=== PATIENT | male | born 1980 | race Caucasian/White ===

== ENCOUNTER → 2017-11-09 | Outpatient (CLI) | payer OTHER ==
[2017-11-09] MEDS: GADOBUTROL 10 MMOL/10 ML VIAL IV (09:34)
== END | disposition home or self-care (01) ==
LOC: KCIC MRI 08:23
DX: H93.12 Tinnitus, left ear (principal)
CPT/HCPCS: 70553; A9585

== ENCOUNTER 2018-05-18 17:03 | Inpatient (IN) | payer OTHER ==
[2018-05-18] VITALS (7 sets, daily range): BP systolic 102–139; BP diastolic 61–98
[~2018-05-18] VITALS: Ht 180.3 cm; Wt 94.4 kg
[~2018-05-18 17:03] MED LIST: TRAZ-85 PO
[2018-05-18] MEDS ORDERED: 0.9 % SODIUM CHLORIDE 10 ML DISP.SYRIN. IV PRN (19:30)
[2018-05-18] MEDS ORDERED: HALOPERIDOL LACTATE 5 MG/ML VIAL. IVP PRN (19:30)
[2018-05-18] MEDS ORDERED: fentaNYL PF VIAL 100 MCG/2 ML VIAL IV PRN ×2 (19:30)
[2018-05-18] MEDS ORDERED: ONDANSETRON PF 4 MG/2 ML VIAL. IV PRN (19:30)
[2018-05-18 20:33] LABS: BASE EXCESS ABG -4 mmol/L (-3-3); HCO3 ABG 21 mmol/L (21-28); PCO2 ABG 37 mmHg (35-46); PO2 ABG 136 mmHg (85-108); SAT O2 ABG 98 % (92-99)
[2018-05-18 20:34] LABS: FIO2 ABG 40
[2018-05-18] MEDS: IV NORMAL SALINE 1000ML BAG 1,000 ML IV SCH (20:34)
[2018-05-18] MEDS ORDERED: CHLORHEXIDINE 0.12% 15 ML MOUTHWASH. MM SCH (21:00)
--- NOTE | 2018-05-18 21:43 | RAD ---
Examination: Single frontal view of the abdomen HISTORY: History of NG tube placement COMPARISON: None available. Findings/ impression: The feeding tube is identified just below the level of the hemidiaphragm projecting distal to the gastroesophageal junction. The stomach is mildly distended with air. Recommend chest radiograph to follow the course of the NG tube. The bowel gas pattern appears unremarkable. Electronically signed by: Kilo De La Torre MD (05/18/2018 9:40 PM) [facility]
--- NOTE | 2018-05-18 21:43 | RAD ---
Examination: Single frontal view of the abdomen HISTORY: History of NG tube placement COMPARISON: None available. Findings/ impression: The feeding tube is identified just below the level of the hemidiaphragm projecting distal to the gastroesophageal junction. The stomach is mildly distended with air. Recommend chest radiograph to follow the course of the NG tube. Electronically signed by: Kilo De La Torre MD (05/18/2018 9:39 PM) [facility]
[2018-05-18] MEDS ORDERED: HYDR25TA PO (21:55)
[2018-05-18] MEDS ORDERED: GABA300C18 PO (22:32)
[2018-05-18] MEDS ORDERED: VENL75TA PO (22:32)
[2018-05-18] MEDS ORDERED: DISU250T PO (22:32)
[2018-05-18] MEDS ORDERED: NAPR-514 PO (22:32)
[2018-05-18] MEDS ORDERED: PRAZ2CAP2 PO (22:32)
[2018-05-19] VITALS (16 sets, daily range): BP systolic 88–156; BP diastolic 43–110
[2018-05-19] MEDS: PROPOFOL 100 ML IV PRN ×2 (03:39→09:24)
[2018-05-19 05:29] LABS: BASO % 0 % (0-3); EOS # 0.2 x10^3/uL (0.0-0.7); EOS % 2 % (0-3); HEMATOCRIT 42.6 % (39.0-53.0); HEMOGLOBIN 14.4 g/dL (13.0-17.5); LYMPH # 2.9 x10^3/uL (1.0-4.8); LYMPH % 38 % (24-48); MEAN CORPUSCULAR HEMOGLOBIN 31 pg (25-35); MEAN CORPUSCULAR HGB CONC 34 g/dL (31-37); MEAN CORPUSCULAR VOLUME 92 fL (79-100); MONO # 0.2 x10^3/uL (0.0-1.1); MONO % 2 % (0-9); NEUT # 4.5 x10^3uL (1.8-7.7); NEUT % 58 % (31-73); PLATELET COUNT 272 x10^3/uL (140-400); RED BLOOD COUNT 4.61 x10^6/uL (4.30-5.70); RED CELL DISTRIBUTION WIDTH 14.7 % (11.5-14.5); WHITE BLOOD COUNT 7.7 x10^3/uL (4.0-11.0)
[2018-05-19] MEDS: IV NORMAL SALINE 1000ML BAG 1,000 ML IV SCH (05:43)
[2018-05-19 05:53] LABS: ALBUMIN 3.5 g/dL (3.4-5.0); ALBUMIN/GLOBULIN RATIO 1.1 (1.0-1.7); CALCIUM 7.4 mg/dL (8.5-10.1); CREATININE 0.8 mg/dL (0.7-1.3); GFR 108.8; POTASSIUM 3.6 mmol/L (3.5-5.1); TOTAL BILIRUBIN 0.2 mg/dL (0.2-1.0); TOTAL PROTEIN 6.6 g/dL (6.4-8.2)
--- NOTE | 2018-05-19 07:53 | RAD ---
AP chest x-ray HISTORY: Respiratory distress, mechanical ventilation, respiratory failure. FINDINGS: Endotracheal tube tip 5 cm above the hi. Nasogastric tube extends to the abdomen. Heart size upper limits normal. Mediastinum unremarkable. Thin linear density left lung base laterally likely discoid atelectasis. No pneumothorax, pulmonary opacities or pleural effusions. Mild upper thoracic scoliosis. IMPRESSION: Lines and tubes as described above. No pneumothorax. Mild discoid atelectasis at the left lung base. AP abdomen x-ray HISTORY: Orogastric tube placement. FINDINGS: Since the prior study from May 18, 2018 there has been repositioning of the orogastric tube to the midline abdomen near the region of the lower stomach. The stomach gas has been decompressed since the prior study. The right abdomen and flank laterally are outside the [id number]. Mild volume of stool and gas within the left-sided colon. No dilated small bowel loops. Bones unremarkable. IMPRESSION: Orogastric intubation. Electronically signed by: Santiago Thompson MD (05/19/2018 7:50 AM) [facility]
--- NOTE | 2018-05-19 07:53 | RAD ---
AP chest x-ray HISTORY: Respiratory distress, mechanical ventilation, respiratory failure. FINDINGS: Endotracheal tube tip 5 cm above the hi. Nasogastric tube extends to the abdomen. Heart size upper limits normal. Mediastinum unremarkable. Thin linear density left lung base laterally likely discoid atelectasis. No pneumothorax, pulmonary opacities or pleural effusions. Mild upper thoracic scoliosis. IMPRESSION: Lines and tubes as described above. No pneumothorax. Mild discoid atelectasis at the left lung base. AP abdomen x-ray HISTORY: Orogastric tube placement. FINDINGS: Since the prior study from May 18, 2018 there has been repositioning of the orogastric tube to the midline abdomen near the region of the lower stomach. The stomach gas has been decompressed since the prior study. The right abdomen and flank laterally are outside the [id number]. Mild volume of stool and gas within the left-sided colon. No dilated small bowel loops. Bones unremarkable. IMPRESSION: Orogastric intubation. Electronically signed by: Santiago Thompson MD (05/19/2018 7:50 AM) [facility]
[2018-05-19 07:55] LABS: BASE EXCESS ABG -4 mmol/L (-3-3); HCO3 ABG 21 mmol/L (21-28); PCO2 ABG 40 mmHg (35-46); PO2 ABG 145 mmHg (85-108); SAT O2 ABG 98 % (92-99)
[2018-05-19 07:58] LABS: FIO2 ABG 40
[2018-05-19] MEDS ORDERED: POTASSIUM CL 20MEQ IN D5W 1,000 ML IV SCH (08:00)
--- NOTE | 2018-05-19 08:18 | HP ---
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 He was sent from there to [facility] for evaluation for medical clearance before he gets to [facility]. The emergency medical service personnel reported that the patient had a Anton coma scale of 3 with spontaneous respirations. He apparently was slightly tachycardic without hypertension, hypoxia, and he was unresponsive to painful stimuli. He was given Narcan without improvement. His blood alcohol level was extremely high and more than 500, and therefore, he was intubated to protect his airway and was transferred to [facility] for ventilator management. PAST MEDICAL HISTORY: Unobtainable. PAST SURGICAL HISTORY: Unremarkable. FAMILY HISTORY: Unremarkable. SOCIAL HISTORY: He is . Apparently, he has a problem with alcohol abuse and was seen at [facility] for him to go to [facility] for rehabilitation. PHYSICAL EXAMINATION: GENERAL: On arrival to the Emergency Room, the patient was well developed, well nourished, unresponsive. VITAL SIGNS: His heart rate was 82, blood pressure was 110/60, respiratory rate was 18 and oxygen saturation was 96% on room air. HEAD, EYES, EARS, NOSE AND THROAT: Showed normocephalic, atraumatic. NECK: Supple. HEART: Showed normal first and second heart sounds. No gallop, rub or murmur. CHEST: Clear to auscultation. No crepitation or rhonchi. ABDOMEN: Slightly distended, soft, nontender. No guarding or rigidity. No organomegaly. All hernial orifice intact. Bowel sounds normal. EXTREMITIES: Showed no clubbing, cyanosis or edema. NEUROLOGIC: He was unresponsive with a Anton coma scale of 3. His EKG showed that he was in sinus tachycardia with a heart rate of 105, otherwise a normal EKG. He has had lab work withdrawn, and the patient underwent intubation and endotracheal tube was secured in position, and the placement was confirmed by change of color of carbon dioxide detector, direct visualization of vocal cords, bilateral chest rise and chest x-ray was done to verify correct placement. LABORATORY DATA: While at the Emergency Room showed that his white cell count was 9900, hemoglobin 14, hematocrit 41, MCV 92 and platelet count 299,000, with normal manual differential. His chemistry showed a serum sodium 143, potassium 3.7, chloride 103, bicarbonate 25, anion gap of 15. His glucose was 107, BUN is 11 and creatinine 0.9. Total bilirubin, AST, ALT, alkaline phosphatase were normal. His total protein was 7.1, albumin 3.9, calcium was 8.4. His estimated GFR was 95 mL per minute. CK was 198, magnesium 2.1. Lactic acid was 3.6. Serum lipase was 128. Ammonia was 21. His urine toxicology screen was negative except for a blood alcohol level of 530 mg/dL, and therefore, the patient was transferred to [facility] for continued mechanical ventilation, continue the propofol for sedation and normal saline together with alcohol withdrawal protocol. DON STALEY MD DR: SERAFIN/karla JOB#: [id number] / [id number]
--- NOTE | 2018-05-19 09:15 | PN ---
DATE: 05/19/2018 SUBJECTIVE: The patient is resting, slightly propped up in bed, no apparent distress, continued to be intubated, mechanically ventilated, sedated with propofol. The nursing staff stated that he had an uneventful night. PHYSICAL EXAMINATION: GENERAL: When I examined him, he looked well and was clearly in no apparent respiratory distress. No pallor, jaundice, cyanosis, or thyromegaly. No jugular venous distension. No limb edema. VITAL SIGNS: His heart rate was 80, blood pressure was 102/61, temperature was 98, respiratory rate was 18 and oxygen saturation was 97% on FiO2 of 50%. HEAD, EYES, EARS, NOSE AND THROAT: Showed normocephalic, atraumatic. His orotracheal tube in place. NECK: Supple. HEART: Showed normal first and second heart sounds with no gallop, rub or murmur. CHEST: Clear to auscultation. No crepitation or rhonchi. ABDOMEN: Distended, soft, nontender. NEUROLOGIC: He does open his eyes, tracks and moves all extremities spontaneously. His intake over the last 24 hours was 971, output was 3100. LABORATORY DATA: Showed serum sodium of 148, potassium 3.6, chloride 101, bicarbonate 24, anion gap of 13, BUN 7, creatinine 0.8, estimated GFR was 180 mL per minute. His glucose was 89, lactic acid yesterday was 3.3, calcium was 7.4, magnesium was 1.8. Total bilirubin, AST, ALT, alkaline phosphatase were normal. Total protein 6.6, albumin 3.5 and his white cell count was 7700, hemoglobin 14.4, MCV was 47.6, MCV 97 and platelet count of 272,000, normal manual differential. ASSESSMENT: 1. Alcohol intoxication with a blood alcohol level of 530 mg/dL. 2. Severe toxic encephalopathy. Jarrell coma scale of 3, which the patient was intubated and mechanically ventilated to protect his airways. 3. Hypernatremia. PLAN: My plan is to continue mechanical ventilation and wean as tolerated. We did consult Dr. Mathias. I will change IV fluid to D5W with 20 mEq of potassium chloride and he obviously needs to continue with alcohol withdrawal protocol. I have to consult the mental health team here to see if he can still qualify to go to the [facility] for rehabilitation. DON STALEY MD DR: SERAFIN/karla JOB#: [id number] / [id number]
[2018-05-19] MEDS: [UNRECOGNIZED DRUG - OTHER] IV SCH (09:17)
[2018-05-19] MEDS: FOLIC ACID IV SCH (09:17)
[2018-05-19] MEDS: MULTIVIT INFUSN ADULT K IV SCH (09:17)
[2018-05-19] MEDS: THIAMINE IV SCH (09:17)
[2018-05-19] MEDS: ENOXAPARIN 40 MG/0.4 ML SYRINGE. SQ SCH (09:19)
[2018-05-19] MEDS: FAMOTIDINE 20 MG/2 ML VIAL IVP SCH ×2 (09:21→20:33)
[2018-05-19 10:03] LABS: BASE EXCESS ABG -4 mmol/L (-3-3); FIO2 ABG 40; HCO3 ABG 22 mmol/L (21-28); PCO2 ABG 44 mmHg (35-46); PO2 ABG 147 mmHg (85-108); SAT O2 ABG 98 % (92-99)
[2018-05-19] MEDS ORDERED: HYDR25TA PO (10:59)
[2018-05-19] MEDS ORDERED: hydrOXYzine PAMOATE 25 MG CAPSULE PO PRN (11:15)
--- NOTE | 2018-05-19 11:57 | CONS ---
DATE OF CONSULTATION: PULMONARY CONSULTATION ATTENDING PHYSICIAN: Dr. Matson. REASON FOR CONSULTATION: Respiratory failure, alcohol intoxication. HISTORY OF PRESENT ILLNESS: The patient is a 38-year-old male with history of alcohol abuse and was seen at [facility] for planned admission to [facility]. The patient was noted to have worsening mental status and a Jarrell coma scale of 3 with spontaneous respirations. He was tachycardic as well. He was unresponsive to painful stimuli. He was given Narcan without any improvement. His blood alcohol level was 500. As a result, he was intubated to protect his airway and transferred to our facility. The patient was kept on the ventilator overnight. This morning, he is more awake, following commands. He is on a CPAP trial and wants ET tube out. Chest x-ray shows some minimal atelectasis at the bases. PAST MEDICAL HISTORY: History of alcohol abuse. He nods no to tobacco use. PAST SURGICAL HISTORY: No recent surgeries. ALLERGIES: None. MEDICATIONS: Reviewed as listed in the MRAD including DVT and stress ulcer prophylaxis. SOCIAL HISTORY: History of alcohol abuse. He was supposed to be admitted to alcohol rehab facility. PHYSICAL EXAMINATION: VITAL SIGNS: Stable, awake, following commands. HEENT: Sclerae nonicteric. NECK: Supple. LUNGS: Clear. CARDIOVASCULAR: Regular rate and rhythm. ABDOMEN: Soft, nontender. EXTREMITIES: With no pitting edema. LABORATORY DATA: Reviewed. White cell count 7.7, hemoglobin 14.4, platelet 272. BUN and creatinine 7 and 0.8. Sodium 148. ABGs on a vent, pH 7.36, pCO2 37, pO2 136 and on a CPAP trial reasonable as well. IMPRESSION: 1. Acute respiratory failure secondary to toxic encephalopathy. 2. Acute toxic encephalopathy secondary to alcohol intoxication. Blood alcohol level was 500. 3. Abnormal chest x-ray with mild basilar atelectasis secondary to hypoventilation. RECOMMENDATIONS: 1. The patient is doing reasonably well on CPAP trial. He is fully awake and he wants endotracheal tube out. Discussed with respiratory therapist and RN and we will proceed with extubation. 2. The patient should go back to inhouse rehab for alcohol detoxification. 3. We will initiate oral nutrition once extubated. 4. Deep venous thrombosis prophylaxis. 5. Stress ulcer prophylaxis. Critical care time 35 minutes. Discussed with RN and RT. DAMON ACHARYA MD DR: Ariadna JOB#: [id number] / [id number]
[2018-05-19] MEDS ORDERED: VENLAFAXINE 75 MG TABLET. PO SCH (12:00)
[2018-05-19] MEDS: hydrOXYzine PAMOATE 25 MG CAPSULE PO PRN ×2 (12:15→21:03)
[2018-05-19] MEDS: VENLAFAXINE XR 37.5 MG CAP.ER.24H. PO SCH ×2 (12:21→20:34)
[2018-05-19] MEDS: GABAPENTIN 300 MG CAPSULE. PO SCH ×2 (14:58→20:34)
[2018-05-19] MEDS: PRAZOSIN 1 MG CAPSULE. PO SCH ×2 (15:00→20:33)
[2018-05-19] MEDS: ALPRAZolam 0.5 MG TABLET PO PRN ×2 (16:04→20:33)
[2018-05-19] MEDS: NAPROXEN 500 MG TABLET PO SCH (20:35)
[2018-05-19] MEDS ORDERED: traZODone 50 MG TABLET. PO SCH (21:00)
[2018-05-20 03:42] VITALS: BP 145/96
[2018-05-20 06:25] LABS: HEMATOCRIT 38.2 % (39.0-53.0); HEMOGLOBIN 13.5 g/dL (13.0-17.5); RED BLOOD COUNT 4.23 x10^6/uL (4.30-5.70); RED CELL DISTRIBUTION WIDTH 14.4 % (11.5-14.5); WHITE BLOOD COUNT 5.1 x10^3/uL (4.0-11.0)
[2018-05-20 06:42] LABS: ALBUMIN 3.6 g/dL (3.4-5.0); ALBUMIN/GLOBULIN RATIO 1.1 (1.0-1.7); CREATININE 0.9 mg/dL (0.7-1.3); MAGNESIUM 1.7 mg/dL (1.8-2.4); POTASSIUM 3.6 mmol/L (3.5-5.1); TOTAL BILIRUBIN 1.4 mg/dL (0.2-1.0); TOTAL PROTEIN 6.9 g/dL (6.4-8.2)
[2018-05-20 07:00] VITALS: BP 151/99
[2018-05-20 08:56] VITALS: BP 151/99
[2018-05-20] MEDS: THIAMINE IV SCH (08:56)
[2018-05-20] MEDS: VENLAFAXINE XR 37.5 MG CAP.ER.24H. PO SCH (08:56)
[2018-05-20] MEDS: ALPRAZolam 0.5 MG TABLET PO PRN (08:56)
[2018-05-20] MEDS: FOLIC ACID IV SCH (08:56)
[2018-05-20] MEDS: MULTIVIT INFUSN ADULT K IV SCH (08:56)
[2018-05-20] MEDS: ENOXAPARIN 40 MG/0.4 ML SYRINGE. SQ SCH (08:56)
[2018-05-20] MEDS: PRAZOSIN 1 MG CAPSULE. PO SCH (08:56)
[2018-05-20] MEDS: [UNRECOGNIZED DRUG - OTHER] IV SCH (08:56)
[2018-05-20] MEDS: FAMOTIDINE 20 MG/2 ML VIAL IVP SCH (08:57)
[2018-05-20] MEDS ORDERED: DISULFIRAM 250 MG PO SCH (09:00)
[2018-05-20] MEDS: NAPROXEN 500 MG TABLET PO SCH (09:00)
[2018-05-20] MEDS: GABAPENTIN 300 MG CAPSULE. PO SCH ×2 (09:00→09:49)
[2018-05-20] MEDS ORDERED: ALPR0.5T PO (10:43)
--- NOTE | 2018-05-20 10:47 | PDOC ---
PULMONARY PROGRESS NOTES Subjective no issuea extubated 05/19 Vitals Vital Signs Date Time Temp Pulse Resp B/P (MAP) Pulse Ox O2 Delivery O2 Flow Rate FiO2 05/20/18 08:56 85 151/99 05/20/18 07:18 Room Air 05/20/18 07:00 97.5 18 96 97.5 General: Alert, No acute distress Lungs: Clear Cardiovascular: S1 Abdomen: Soft Neuro Exam: Alert Extremities: No Edema Skin: Warm Labs Laboratory Tests Test 05/18/18 20:00 05/18/18 20:10 05/18/18 20:27 05/19/18 04:30 O2 Saturation 98 % (92-99) Arterial Blood pH 7.36 (7.35-7.45) Arterial Blood pCO2 at Patient Temp 37 mmHg (35-46) Arterial Blood pO2 at Patient Temp 136 mmHg (85-108) Arterial Blood HCO3 21 mmol/L (21-28) Arterial Blood Base Excess -4 mmol/L (-3-3) FiO2 40 Lactic Acid Level 3.3 mmol/L (0.4-2.0) Nasal Screen MRSA (PCR) Negative (Negative) White Blood Count 7.7 x10^3/uL (4.0-11.0) Red Blood Count 4.61 x10^6/uL (4.30-5.70) Hemoglobin 14.4 g/dL (13.0-17.5) Hematocrit 42.6 % (39.0-53.0) Mean Corpuscular Volume 92 fL (79-100) Mean Corpuscular Hemoglobin 31 pg (25-35) Mean Corpuscular Hemoglobin Concent 34 g/dL (31-37) Red Cell Distribution Width 14.7 % (11.5-14.5) Platelet Count 272 x10^3/uL (140-400) Neutrophils (%) (Auto) 58 % (31-73) Lymphocytes (%) (Auto) 38 % (24-48) Monocytes (%) (Auto) 2 % (0-9) Eosinophils (%) (Auto) 2 % (0-3) Basophils (%) (Auto) 0 % (0-3) Neutrophils # (Auto) 4.5 x10^3uL (1.8-7.7) Lymphocytes # (Auto) 2.9 x10^3/uL (1.0-4.8) Monocytes # (Auto) 0.2 x10^3/uL (0.0-1.1) Eosinophils # (Auto) 0.2 x10^3/uL (0.0-0.7) Basophils # (Auto) 0.0 x10^3/uL (0.0-0.2) Sodium Level 148 mmol/L (136-145) Potassium Level 3.6 mmol/L (3.5-5.1) Chloride Level 111 mmol/L (98-107) Carbon Dioxide Level 24 mmol/L (21-32) Anion Gap 13 (6-14) Blood Urea Nitrogen 7 mg/dL (8-26) Creatinine 0.8 mg/dL (0.7-1.3) Estimated GFR (Cockcroft-Gault) 108.8 BUN/Creatinine Ratio 9 (6-20) Glucose Level 89 mg/dL (70-99) Calcium Level 7.4 mg/dL (8.5-10.1) Magnesium Level 1.8 mg/dL (1.8-2.4) Total Bilirubin 0.2 mg/dL (0.2-1.0) Aspartate Amino Transf (AST/SGOT) 27 U/L (15-37) Alanine Aminotransferase (ALT/SGPT) 38 U/L (16-63) Alkaline Phosphatase 92 U/L (46-116) Total Protein 6.6 g/dL (6.4-8.2) Albumin 3.5 g/dL (3.4-5.0) Albumin/Globulin Ratio 1.1 (1.0-1.7) Ethyl Alcohol Level 400 mg/dL (0-10) Test 05/19/18 07:45 05/19/18 09:45 05/19/18 13:10 05/20/18 05:30 O2 Saturation 98 % (92-99) 98 % (92-99) Arterial Blood pH 7.34 (7.35-7.45) 7.33 (7.35-7.45) Arterial Blood pCO2 at Patient Temp 40 mmHg (35-46) 44 mmHg (35-46) Arterial Blood pO2 at Patient Temp 145 mmHg (85-108) 147 mmHg (85-108) Arterial Blood HCO3 21 mmol/L (21-28) 22 mmol/L (21-28) Arterial Blood Base Excess -4 mmol/L (-3-3) -4 mmol/L (-3-3) FiO2 40 40 Ethyl Alcohol Level 222 mg/dL (0-10) White Blood Count 5.1 x10^3/uL (4.0-11.0) Red Blood Count 4.23 x10^6/uL (4.30-5.70) Hemoglobin 13.5 g/dL (13.0-17.5) Hematocrit 38.2 % (39.0-53.0) Mean Corpuscular Volume 90 fL (79-100) Mean Corpuscular Hemoglobin 32 pg (25-35) Mean Corpuscular Hemoglobin Concent 35 g/dL (31-37) Red Cell Distribution Width 14.4 % (11.5-14.5) Platelet Count 209 x10^3/uL (140-400) Sodium Level 139 mmol/L (136-145) Potassium Level 3.6 mmol/L (3.5-5.1) Chloride Level 102 mmol/L (98-107) Carbon Dioxide Level 31 mmol/L (21-32) Anion Gap 6 (6-14) Blood Urea Nitrogen 10 mg/dL (8-26) Creatinine 0.9 mg/dL (0.7-1.3) Estimated GFR (Cockcroft-Gault) 95.0 BUN/Creatinine Ratio 11 (6-20) Glucose Level 85 mg/dL (70-99) Calcium Level 9.0 mg/dL (8.5-10.1) Magnesium Level 1.7 mg/dL (1.8-2.4) Total Bilirubin 1.4 mg/dL (0.2-1.0) Aspartate Amino Transf (AST/SGOT) 23 U/L (15-37) Alanine Aminotransferase (ALT/SGPT) 33 U/L (16-63) Alkaline Phosphatase 91 U/L (46-116) Total Protein 6.9 g/dL (6.4-8.2) Albumin 3.6 g/dL (3.4-5.0) Albumin/Globulin Ratio 1.1 (1.0-1.7) Laboratory Tests Test 05/19/18 13:10 05/20/18 05:30 Ethyl Alcohol Level 222 mg/dL (0-10) White Blood Count 5.1 x10^3/uL (4.0-11.0) Red Blood Count 4.23 x10^6/uL (4.30-5.70) Hemoglobin 13.5 g/dL (13.0-17.5) Hematocrit 38.2 % (39.0-53.0) Mean Corpuscular Volume 90 fL (79-100) Mean Corpuscular Hemoglobin 32 pg (25-35) Mean Corpuscular Hemoglobin Concent 35 g/dL (31-37) Red Cell Distribution Width 14.4 % (11.5-14.5) Platelet Count 209 x10^3/uL (140-400) Sodium Level 139 mmol/L (136-145) Potassium Level 3.6 mmol/L (3.5-5.1) Chloride Level 102 mmol/L (98-107) Carbon Dioxide Level 31 mmol/L (21-32) Anion Gap 6 (6-14) Blood Urea Nitrogen 10 mg/dL (8-26) Creatinine 0.9 mg/dL (0.7-1.3) Estimated GFR (Cockcroft-Gault) 95.0 BUN/Creatinine Ratio 11 (6-20) Glucose Level 85 mg/dL (70-99) Calcium Level 9.0 mg/dL (8.5-10.1) Magnesium Level 1.7 mg/dL (1.8-2.4) Total Bilirubin 1.4 mg/dL (0.2-1.0) Aspartate Amino Transf (AST/SGOT) 23 U/L (15-37) Alanine Aminotransferase (ALT/SGPT) 33 U/L (16-63) Alkaline Phosphatase 91 U/L (46-116) Total Protein 6.9 g/dL (6.4-8.2) Albumin 3.6 g/dL (3.4-5.0) Albumin/Globulin Ratio 1.1 (1.0-1.7) Medications Active Scripts Medications Dose Route/Sig Max Daily Dose Days Date Category Xanax (Alprazolam) 0.5 Mg Tablet 1 Tab PO TID 7 05/20/18 Rx Hydroxyzine Hcl 25 Mg Tablet 50 Mg PO PRN TID PRN 05/19/18 Reported Prazosin Hcl 2 Mg Capsule 1 Cap PO TID 05/18/18 Reported Naproxen 500 Mg Tablet 1 Tab PO BID 05/18/18 Reported Disulfiram 250 Mg Tablet 250 Mg PO DAILY 05/18/18 Reported Gabapentin (Gabapentin) 300 Mg Capsule 300 Mg PO TID 05/18/18 Reported Venlafaxine Hcl 75 Mg Tablet 75 Mg PO DAILY 05/18/18 Reported Trazodone Hcl 50 Mg Tablet 50 Mg PO DAILY 11/09/17 Reported Impression . 1. Acute respiratory failure secondary to toxic encephalopathy. 2. Acute toxic encephalopathy secondary to alcohol intoxication. Blood alcohol level was 500. 3. Abnormal chest x-ray with mild basilar atelectasis secondary to hypoventilation. Plan . 1. The patient is doing reasonably well on RA since extubation. 2. The patient should go back to inhouse rehab for alcohol detoxification. 3. oral nutrition ok with dc pulmonary navas. will sign off DAMON ACHARYA MD May 20, 2018 10:47
--- NOTE | 2018-05-20 11:29 | DS ---
DATE OF DISCHARGE: 05/20/2018 HISTORY OF PRESENT ILLNESS: The patient is a 38-year-old male patient who was seen yesterday at [facility]. He was originally seen at [facility] and there were plans for him to be admitted to [facility]. He was sent from there to [facility] Emergency Room for evaluation for medical clearance before he gets to [facility]. The Emergency Room medical records at [facility] reported that the patient was with a Celina coma scale of 3 with spontaneous respiration. Apparently, he was slightly tachycardic, without any hypertension or hypoxia. He was unresponsive to painful stimuli. He was given Narcan, without improvement. His blood alcohol level was extremely high, was more than 500 and therefore, he was intubated to protect his airways and was transferred to [facility] for ventilatory management and was started on alcohol withdrawal protocol. The patient was successfully extubated yesterday. He was evaluated by the mental health team. However, the patient is adamantly refusing to go to the [facility] and wanted to get [facility] 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 PHYSICAL EXAMINATION: GENERAL: When I saw him, he was sitting comfortably in his chair, in no apparent distress. He is awake, alert, responding appropriately, has eaten his dinner. He has no nausea or vomiting. On examining him, there was no pallor, jaundice, cyanosis or thyromegaly. No jugular venous distention. No lower limb edema. VITAL SIGNS: His heart rate was 85, blood pressure was 151/99, temperature was 97.5, respiratory rate was 18 and oxygen saturation was 96%. HEENT: Examination of the head, eyes, ears, nose and throat showed normocephalic, atraumatic. NECK: Supple. HEART: Showed normal first and second heart sounds, with no gallop, rub or murmur. CHEST: Clear to auscultation. No crepitation or rhonchi. ABDOMEN: Distended, soft and nontender. NEUROLOGICAL: He was awake, alert and responding appropriately. All cranial nerves were intact. He ambulated without assistance or assistive devices. LABORATORY DATA: His lab work as of this morning showed a white cell count 5100, hemoglobin 13.5, hematocrit 38, MCV 90 and platelet count 209,000. His chemistry showed a serum sodium of 139, potassium 3.6, chloride 102, bicarbonate 31, anion gap of 6, BUN 10, creatinine 0.9, estimated GFR was 95 mL per minute, his glucose was 85 and calcium was 9. Magnesium was 1.7. Total bilirubin was 1.4. AST, ALT and alkaline phosphatase were normal. Total protein was 6.9, albumin 3.6. His blood alcohol level dropped down from 530 to 222 mg yesterday at 01:00 in the afternoon. DISCHARGE MEDICATIONS: The patient will be discharged home to continue on the following medications: Alprazolam for Xanax 0.5 mg 3 times a day as needed for anxiety, disulfiram 250 mg daily, gabapentin 300 mg 3 times a day, hydroxyzine 50 mg 3 times a day as needed, naproxen 500 mg twice a day, prazosin 2 mg 3 times a day, trazodone 50 mg daily and venlafaxine 75 mg daily. FINAL DISCHARGE DIAGNOSES: 1. Alcohol intoxication. 2. Acute hypoxic respiratory failure. 3. Post-traumatic stress disorder. DON STALEY MD DR: SERAFIN/karla JOB#: [id number] / [id number]
== END 2018-05-20 11:05 | disposition home or self-care (01) | DRG 208 ==
LOC: 1 WEST ICU 18:25 → 6 SOUTH 05-19 15:51
PROVIDERS: ADMIT Internal Medicine; ATTEND Internal Medicine
PROC: 5A1935Z Respiratory Ventilation, Less than 24 Consecutive Hours (ICD-10-PCS; principal; 2018-05-18)
PROC: 0BH17EZ Insertion of Endotracheal Airway into Trachea, Via Natural or Artificial Opening (ICD-10-PCS; 2018-05-18)
DX: J96.01 Acute respiratory failure with hypoxia (principal); G92 Toxic encephalopathy; E87.0 Hyperosmolality and hypernatremia; J98.11 Atelectasis; F10.129 Alcohol abuse with intoxication, unspecified; F43.10 Post-traumatic stress disorder, unspecified; Y90.8 Blood alcohol level of 240 mg/100 ml or more; Z79.899 Other long term (current) drug therapy; R40.2433 Glasgow coma scale score 3-8, at hospital admission
CPT/HCPCS: 36415; 36600; 71045; 74018; 80053; 82805; 83605; 83735; 85025; 85027; 87641; 94002; 94003; G0480; J1650; J2060; J2704; J3010; J3490; J7030; J7042; Q0177